=== PATIENT | female | born 1955 | race Caucasian/White ===

== ENCOUNTER 2018-05-25 11:37 | Emergency (ER) | payer MEDICARE, MEDICAID ==
[~2018-05-25] VITALS: Ht 162.6 cm; Wt 82.3 kg
[~2018-05-25 11:37] MED LIST: ALBU8HFA PO; AMIT-106 PO; BUDE10.2 INH; ESTR2TAB6 PO; GABA-532 PO; HYDR-3964 PO; LANS30CA56 PO; LEVO750T46 PO; LISI10TA4 PO; MEDR2.5T7 PO; METF-950 PF; ROSU20TA PO
[2018-05-25 12:15] LABS: BASOPHILS % (AUTO) 0.4 % (0-1); EOSINOPHILS % (AUTO) 0.1 % (0-6); HEMATOCRIT 44.1 % (35.0-45.0); HEMOGLOBIN 14.8 g/dl (12.0-16.0); LYMPHOCYTES # (AUTO) 0.6 X10'3 (1.1-4.8); LYMPHOCYTES % (AUTO) 6.5 % (21-51); MEAN CORPUSCULAR HEMOGLOBIN 29.8 PG (27.0-31.0); MEAN CORPUSCULAR HGB CONC 33.5 % (33.0-36.5); MEAN CORPUSCULAR VOLUME 88.9 FL (78-98); MEAN PLATELET VOLUME 8.6 FL (7.4-10.4); MONOCYTES # (AUTO) 0.6 X10'3 (0-0.9); MONOCYTES % (AUTO) 7.2 % (2-12); NEUTROPHILS # (AUTO) 7.7 X10'3 (1.8-7.7); NEUTROPHILS % (AUTO) 85.8 % (42-75); PLATELET COUNT 187 X10'3 (140-440); RED BLOOD COUNT 4.97 X10'6 (4.20-5.60); RED CELL DISTRIBUTION WIDTH 12.2 % (11.5-14.5); WHITE BLOOD COUNT 8.9 X10'3 (4.5-11.0)
[2018-05-25] MEDS ORDERED: ipratropium/albuterol 3ml nebule NEB ONE ×2 (12:15→13:25)
[2018-05-25] MEDS ORDERED: methylPREDNISolone sod succ 125mg/2ml vial IV ONE (12:15)
[2018-05-25 12:18] LABS: PARTIAL THROMBOPLASTIN TIME 27 SECONDS (22-32); PROTHROMBIN TIME 10.4 SECONDS (9.0-12.0)
[2018-05-25 12:21] LABS: ALANINE AMINOTRANSFERASE 13 U/L (12-78); ALBUMIN 3.2 G/DL (3.4-5.0); ALBUMIN/GLOBULIN RATIO 0.8 (1.1-1.5); ALKALINE PHOSPHATASE 71 IU/L (46-116); ANION GAP 9 (8-16); ASPARTATE AMINO TRANSFERASE 10 U/L (10-37); BILIRUBIN,TOTAL 0.3 MG/DL (0.1-1.0); BLOOD UREA NITROGEN 16 MG/DL (7-18); CALCIUM 8.8 MG/DL (8.5-10.1); CHLORIDE 105 MMOL/L (99-107); GLUCOSE 133 MG/DL (70-104); POTASSIUM 4.6 MMOL/L (3.5-5.1); SODIUM 141 MMOL/L (135-145); TOTAL CARBON DIOXIDE 27.5 MMOL/L (24-32); TOTAL PROTEIN 7.3 G/DL (6.4-8.2); eGFR 56 ML/MIN
[2018-05-25 12:40] VITALS: BP 128/66
[2018-05-25] MEDS ORDERED: AZIT250T PO (13:51)
[2018-05-25] MEDS ORDERED: PRED10TA23 PO (13:51)
== END 2018-05-25 14:14 | disposition home or self-care (01) ==
LOC: ER 11:37
DX: J44.1 Chronic obstructive pulmonary disease with (acute) exacerbation (principal); I10 Essential (primary) hypertension; E11.9 Type 2 diabetes mellitus without complications; Z90.49 Acquired absence of other specified parts of digestive tract; Z88.6 Allergy status to analgesic agent
CPT/HCPCS: 36415; 71045; 80053; 84484; 85025; 85610; 85730; 93005; 94640; 94760; 96374; 99285; J2930

== ENCOUNTER 2018-09-17 12:44 | Outpatient (CLI) | payer MEDICARE, MEDICAID | END 2018-09-17 23:59 | disposition home or self-care (01) | LOC: CARD DIAG 12:44 | PROVIDERS: ATTEND Internal Medicine Critical Care Medicine | DX: I27.0 Primary pulmonary hypertension (principal); R06.02 Shortness of breath; J44.9 Chronic obstructive pulmonary disease, unspecified; E11.9 Type 2 diabetes mellitus without complications; Z88.5 Allergy status to narcotic agent; Z88.6 Allergy status to analgesic agent | CPT/HCPCS: 93306 ==

== ENCOUNTER 2018-10-26 17:45 | Inpatient (IN) | payer MEDICARE, MEDICAID ==
[~2018-10-26] VITALS: Ht 160 cm; Wt 71.4 kg
[~2018-10-26 17:45] MED LIST changes: -ROSU20TA PO; +ROSU20TA2 PO
--- NOTE | 2018-10-26 18:51 | NUR ---
PNEUMONIA PROTOCOL ORDERED, PT TO CXR NOW.
[2018-10-26 19:08] LABS: BASOPHILS % (AUTO) 0.1 % (0-1); EOSINOPHILS % (AUTO) 0 % (0-6); HEMATOCRIT 42.4 % (35.0-45.0); HEMOGLOBIN 14.2 g/dl (12.0-16.0); LYMPHOCYTES # (AUTO) 0.4 X10'3 (1.1-4.8); LYMPHOCYTES % (AUTO) 1.8 % (21-51); MEAN CORPUSCULAR HEMOGLOBIN 29.3 PG (27.0-31.0); MEAN CORPUSCULAR HGB CONC 33.4 g/dL (33.0-36.5); MEAN CORPUSCULAR VOLUME 87.9 FL (78-98); MEAN PLATELET VOLUME 8.8 FL (7.4-10.4); MONOCYTES # (AUTO) 0.9 X10'3 (0-0.9); NEUTROPHILS # (AUTO) 20.7 X10'3 (1.8-7.7); NEUTROPHILS % (AUTO) 94.1 % (42-75); PLATELET COUNT 220 X10'3 (140-440); RED BLOOD COUNT 4.83 X10'6 (4.20-5.60); RED CELL DISTRIBUTION WIDTH 13.5 % (11.5-14.5)
[2018-10-26] MEDS ORDERED: ALBU18HF2 INH (19:15)
[2018-10-26] MEDS ORDERED: OMEP-50 (19:15)
[2018-10-26] MEDS ORDERED: CALC-331 (19:15)
[2018-10-26] MEDS ORDERED: HYDR-4353 PO (19:15)
[2018-10-26] MEDS ORDERED: CRAN200C PO (19:15)
[2018-10-26] MEDS ORDERED: LISI-642 PO (19:15)
[2018-10-26] MEDS ORDERED: PARO20TA6 PO (19:17)
[2018-10-26] MEDS ORDERED: CLOT15CR10 TP (19:17)
[2018-10-26] MEDS ORDERED: TIOT18CA3 (19:17)
[2018-10-26] MEDS ORDERED: albuterol 2.5 MG/3 ML nebule NEB ONE ×2 (19:20→19:40)
--- NOTE | 2018-10-26 19:21 | NUR ---
PIV in place, labs and blood cultures x2 drawn. Sats 88% on 4.5 liters, RR 26. RT paged for svn tratment. Med Rec completed. Pt is polite and cooperative and appropriate. hr 108
[2018-10-26 19:25] LABS: ALANINE AMINOTRANSFERASE 10 U/L (12-78); ALBUMIN 2.5 G/DL (3.4-5.0); ALBUMIN/GLOBULIN RATIO 0.5 (1.1-1.5); ALKALINE PHOSPHATASE 85 IU/L (46-116); ANION GAP 11 (8-16); ASPARTATE AMINO TRANSFERASE 10 U/L (10-37); BILIRUBIN,TOTAL 0.5 MG/DL (0.1-1.0); BLOOD UREA NITROGEN 42 MG/DL (7-18); BUN/CREATININE RATIO 16.4 (6.6-38.0); CALCIUM 8.9 MG/DL (8.5-10.1); CHLORIDE 97 MMOL/L (99-107); CREATININE 2.56 MG/DL (0.40-0.90); GLUCOSE 120 MG/DL (70-104); POTASSIUM 4.6 MMOL/L (3.5-5.1); SODIUM 133 MMOL/L (135-145); TOTAL CARBON DIOXIDE 25.1 MMOL/L (24-32); TOTAL PROTEIN 7.3 G/DL (6.4-8.2); eGFR 19 ML/MIN
[2018-10-26] MEDS ORDERED: normal saline 1000ML IV soln IV ONE (19:40)
[2018-10-26] MEDS ORDERED: ipratropium/albuterol 3ml nebule NEB ONE (19:40)
[2018-10-26] MEDS ORDERED: CefTRIAXone 2gm/D5W 50ml 50 ML IV ONE (19:40)
--- NOTE | 2018-10-26 19:45 | NUR ---
pt just finished svn treatment. pt reports continued pain to her bilateral shouders and head ache and posterior neck ache. to be admitted, awaiting hospitalist.
[2018-10-26] MEDS ORDERED: acetaminophen 325mg tablet PO PRN ×2 (19:50)
[2018-10-26] MEDS ORDERED: HYDROcodone/acetaminophen 5mg/325mg tablet PO PRN (19:50)
[2018-10-26] MEDS ORDERED: enoxaparin 100mg/ml syringe SUBCUT ONE (19:50)
[2018-10-26] MEDS ORDERED: morphine 4 MG/ML inj SYRINge IV PRN (19:50)
[2018-10-26] MEDS ORDERED: magnesium hydroxide 30ml (MOM) UD suspension PO PRN (19:50)
[2018-10-26] MEDS ORDERED: mag hydrox/Alum hydrox/simeth 30ml oral suspension PO PRN (19:50)
[2018-10-26] MEDS ORDERED: ondansetron/PF 4mg/2ml inj IV PRN (19:50)
--- NOTE | 2018-10-26 19:52 | NUR ---
SANJUANA RECEIVED FROM [facility] FOR [facility] 4 FOR PAIN OF 10 OUT OF 10 TO HER NECK AND SHOUDERS AND HEAD
[2018-10-26] MEDS ORDERED: ondansetron/PF 4mg/2ml inj IV ONE (19:55)
[2018-10-26] MEDS: morphine 4 MG/ML inj SYRINge IV PRN (20:07)
[2018-10-26 20:11] LABS: D-DIMER 2.16 MG/L FEU (0-0.50)
[2018-10-26 20:15] LABS: PLATELET ESTIMATE NORMAL; TOTAL CELLS COUNTED 100
[2018-10-26 20:16] LABS: POLYCHROMASIA FEW
[2018-10-26 20:18] LABS: TROPONIN I 0.23 NG/ML (0.0-0.05)
--- NOTE | 2018-10-26 20:48 | NUR ---
ROOM MICHAEL 310, RN NOT AVAILABLE TO RECEIVE REPORT NOW AND WILL CALL BACK SHORTLY.
--- NOTE | 2018-10-26 21:16 | NUR ---
received report from Hallie PUENTES, in ER. pt transferring to room 310
--- NOTE | 2018-10-26 21:45 | NUR ---
pt arrived to unit via gurney from ER, arrived in stable condition, a&0x4, VS taken and stable with mild resp distress. all belongings accompanied pt and at bedside. call light placed in reach of pt and educated on use. will review orders and implement as necessary.
[2018-10-26 22:00] VITALS: BP 99/42
[2018-10-26] MEDS ORDERED: pneumococcal 23-VAL P-sac vacc 25 mcg/0.5ml vial IMVAC ONE (22:20)
[2018-10-26] MEDS ORDERED: furosemide 20 MG/2 ML vial IV ONE (23:00)
--- NOTE | 2018-10-26 23:12 | NUR ---
spoke with Dr Aguilar re pt labs and BP, has only had one BP with MAP >60, with SBP <100, does he still want to give lasix? ok to hold for now unless SBP goes above 100, then ok to give. also informed him lactic went from 2.2 to 2.5, no new orders for IVF at this time. will continue to monitor.
[2018-10-27 02:00] VITALS: BP 112/47
[2018-10-27] MEDS: HYDROcodone/acetaminophen 10/325mg tab PO PRN ×2 (02:32→19:32)
[2018-10-27] MEDS ORDERED: furosemide 20 MG/2 ML vial IV ONE (04:00)
[2018-10-27] MEDS ORDERED: azithromycin/NS 500mg/250ml 250 ML IV ONE (04:10)
[2018-10-27 05:06] LABS: CLARITY,URINE CLEAR (Clear); COLOR,URINE YELLOW (Yellow); GLUCOSE, URINE NEGATIVE (Neg); KETONES,URINE NEGATIVE (Neg); LEUKOCYTE ESTERASE ,URINE NEGATIVE (Neg); NITRITES, URINE NEGATIVE (Neg); OCCULT BLOOD,URINE TRACE-INTACT (Neg); PH,URINE 5.5 (4.8-8.0); PROTEIN,URINE 100 mg/dl (Neg)
[2018-10-27 05:06] LABS: BASOPHILS % (AUTO) 0.2 % (0-1); EOSINOPHILS % (AUTO) 0.1 % (0-6); HEMATOCRIT 36.5 % (35.0-45.0); HEMOGLOBIN 12.2 g/dl (12.0-16.0); LYMPHOCYTES # (AUTO) 0.9 X10'3 (1.1-4.8); MEAN CORPUSCULAR HEMOGLOBIN 29.4 PG (27.0-31.0); MEAN CORPUSCULAR HGB CONC 33.5 g/dL (33.0-36.5); MEAN CORPUSCULAR VOLUME 87.9 FL (78-98); MEAN PLATELET VOLUME 9.1 FL (7.4-10.4); MONOCYTES # (AUTO) 0.7 X10'3 (0-0.9); MONOCYTES % (AUTO) 4.3 % (2-12); NEUTROPHILS # (AUTO) 15.6 X10'3 (1.8-7.7); NEUTROPHILS % (AUTO) 90.4 % (42-75); PLATELET COUNT 176 X10'3 (140-440); RED BLOOD COUNT 4.15 X10'6 (4.20-5.60); RED CELL DISTRIBUTION WIDTH 13.5 % (11.5-14.5); WHITE BLOOD COUNT 17.3 X10'3 (4.5-11.0)
[2018-10-27 05:08] LABS: UA COLLECTION TYPE NON-SPECIFIED
[2018-10-27 05:17] LABS: BACTERIA,URINE 1+ /HPF (Neg); MUCUS STRANDS NONE SEEN /LPF (Neg); SQUAMOUS EPITHELIAL CELL,UR MANY /LPF (FEW)
[2018-10-27 05:35] LABS: ANION GAP 12 (8-16); BLOOD UREA NITROGEN 47 MG/DL (7-18); BUN/CREATININE RATIO 18.3 (6.6-38.0); CHLORIDE 100 MMOL/L (99-107); CREATININE 2.57 MG/DL (0.40-0.90); GLUCOSE 138 MG/DL (70-104); POTASSIUM 3.9 MMOL/L (3.5-5.1); SODIUM 136 MMOL/L (135-145); TOTAL CARBON DIOXIDE 24.4 MMOL/L (24-32); TROPONIN I 0.23 NG/ML (0.0-0.05); eGFR 19 ML/MIN
[2018-10-27] MEDS: morphine 4 MG/ML inj SYRINge IV PRN ×2 (05:39→21:33)
[2018-10-27 06:00] VITALS: BP_SYST 118; BP_SYST 126; BP_DIAS 55; BP_DIAS 63
[2018-10-27 06:52] LABS: PLATELET ESTIMATE NORMAL; TOTAL CELLS COUNTED 100
[2018-10-27] MEDS: budesonide 0.5mg/2ml UD nebule IH SCH ×2 (07:20→19:47)
[2018-10-27] MEDS ORDERED: albuterol 2.5 MG/3 ML nebule NEB SCH (08:00)
[2018-10-27] MEDS: CefTRIAXone/D5W-Rocephin 1gm 50 ML IV SCH (08:48)
[2018-10-27] MEDS: PARoxetine 20mg tablet PO SCH (08:54)
[2018-10-27] MEDS: atorvastatin 10mg tablet PO SCH (08:55)
[2018-10-27] MEDS: gabapentin 300mg capsule PO SCH (08:55)
[2018-10-27] MEDS ORDERED: glucagon, human recombinant 1mg kit SUBCUT PRN (09:25)
[2018-10-27] MEDS ORDERED: potassium Cl 20 mEq SR tablet PO PRN ×2 (09:25)
[2018-10-27] MEDS ORDERED: magnesium Cl slow-release 64mg tablet PO PRN (09:25)
[2018-10-27] MEDS ORDERED: potassium Cl 40MEQ/NS 500ml 500 ML IV PRN ×2 (09:25)
[2018-10-27] MEDS ORDERED: dextrose 50%-water 50ml dispensing syringe IV PRN ×2 (09:25)
[2018-10-27] MEDS: azithromycin 250mg tablet PO SCH (09:25)
[2018-10-27] MEDS ORDERED: dextrose ORAL solution 15 GM/59 ML bottle PO PRN ×2 (09:25)
[2018-10-27] MEDS ORDERED: MESSAGE TO PHARMACY PO ONE (09:25)
[2018-10-27] MEDS ORDERED: magnesium 4gm in 100ml NS 100 ML IV PRN (09:25)
--- NOTE | 2018-10-27 09:30 | NUR ---
Patient in room PCU 3027. I have received report from Art RN and had the opportunity to ask questions and assume patient care.
[2018-10-27] MEDS ORDERED: FLU VACC QUAD 2018(5 YR UP)/PF 60 MCG/0.5 ML SYRINGE IM ONE (10:00)
--- NOTE | 2018-10-27 10:05 | NUR ---
Patient arrived to U 3027B via wheelchair. Patient oriented to room and to call light. Patient VS: T: 97.5, HR: 94, RR:22, O2 97% 7L NC, BP 109/61. Pain /10. Patient in no acute distress. Will continue to monitor.
--- NOTE | 2018-10-27 10:06 | NUR ---
Report called to Saskia in PCU. Pt transferred via WC with all property
--- NOTE | 2018-10-27 10:11 | NUR ---
Student documentation: I have reviewed and agree with all interventions, assessments performed and documented by Shraddha RNS.
[2018-10-27 10:40] LABS: HEMOGLOBIN A1C 5.9 % (4.5-6.2)
[2018-10-27 11:00] VITALS: BP 136/81
[2018-10-27] MEDS: ipratropium/albuterol 3ml nebule NEB SCH ×4 (11:00→23:32)
[2018-10-27 12:41] LABS: ABG BASE EXCESS -4.2 mmol/L (-2.0-3.0); ABG HCO3 21.5 mmol/L (22.0-26.0); ABG OXYGEN SATURATION 90.2 % (95-98); ABG PCO2 (T) 41.9 mmHg (32.0-45.0); ABG PH (T) 7.329 (7.350-7.450); ABG PO2 (T) 59.2 mmHg (83-108); ALLEN'S TEST Positive; FCOHb 0.2 % (0.5-1.5); FMetHb 0.1 % (0.3-1.12); FO2Hb 89.9 % (94-100); TOTAL HEMOGLOBIN 12.8 G/dl (12.0-16.0)
[2018-10-27 12:54] LABS: CLARITY,URINE CLOUDY (Clear); COLOR,URINE YELLOW (Yellow); GLUCOSE, URINE NEGATIVE (Neg); KETONES,URINE NEGATIVE (Neg); LEUKOCYTE ESTERASE ,URINE NEGATIVE (Neg); NITRITES, URINE NEGATIVE (Neg); OCCULT BLOOD,URINE TRACE-INTACT (Neg); PH,URINE 5.5 (4.8-8.0); PROTEIN,URINE 30 mg/dl (Neg)
[2018-10-27 12:55] LABS: UA COLLECTION TYPE STRAIGHT CATH
--- NOTE | 2018-10-27 13:07 | NUR ---
New order from Dr. Ricardo: Incentive spirometer Q1H while awake.
[2018-10-27 13:12] LABS: TOTAL PROTEIN,URINE RANDOM 58.6 MG/DL
[2018-10-27 13:32] LABS: BACTERIA,URINE NONE SEEN /HPF (Neg); RBC,URINE 0-2 /HPF (0-2); SQUAMOUS EPITHELIAL CELL,UR NONE SEEN /LPF (FEW); WBC,URINE 0-4 /HPF (0-4)
[2018-10-27 13:33] LABS: AMORPHOUS URATES 2+
[2018-10-27 13:35] LABS: MUCUS STRANDS FEW /LPF (Neg)
[2018-10-27 15:00] VITALS: BP 117/48
--- NOTE | 2018-10-27 18:21 | NUR ---
Patient in room PCU 3027. I have received report from CHRISTELLE PEUNTES and had the opportunity to ask questions and assume patient care. PATIENT AWAKE IN NO DISTRESS REPORTING HER BREATHING IS MUCH BETTER TODAY
--- NOTE | 2018-10-27 18:24 | NUR ---
Problems reprioritized. Patient report given, questions answered & plan of care reviewed with Alexia PUENTES.
--- NOTE | 2018-10-27 18:28 | NUR ---
[place] documentation: I have reviewed and agree with all interventions, assessments performed and documented by May PUENTES. [place] Medication Administration: For this medication-pass time frame, all medication were reviewed, dispensed, administered and documented per hospital policy by Mya PUENTES.
--- NOTE | 2018-10-27 18:32 | NUR ---
Problems reprioritized. Patient report given, questions answered & plan of care reviewed with Alexia PUENTES.
[2018-10-27 19:00] VITALS: BP 123/48
[2018-10-27] MEDS: insulin glargine (Lantus) pen - multi-dose SQ SCH (21:00)
[2018-10-27] MEDS: clotrimazole topical cream 15gm tube TP SCH (21:23)
--- NOTE | 2018-10-27 21:46 | NUR ---
PAGER ID: [phone] MESSAGE: pcu [phone]; Mei alvarez has some upper abdominal and chest pain 05/26. v/s stable. she came in with pleuritic pain but stat ekg done. morphine given. did you want to do anything else? thanks Addendum: 10/27/18 at 2152 by Nitish Guthrie RN dr vernon called back stating patient has been having this type of chest pain "all along" and to only medicate for pain at this time
[2018-10-27 23:00] VITALS: BP 128/51
--- NOTE | 2018-10-28 00:56 | NUR ---
PAGER ID: [phone] MESSAGE: pcu [phone]; Mei alvarez is having some sob hr 130's. o2sat low 90's on 5-6l. I gave morphine 3 hours ago. can we please get something more. patient is c/o 03/26 pain when coughing. thanks marcelino Addendum: 10/28/18 at 0151 by Nitish Guthrie RN dr vernon never called back; morphine given at prn time frame. patient hr bouncing around from low 100's to 120's but o2sat above 90 at this time back at 5l. patient instructed to cough up phlegm and was given IS/Flutter. patient was found at the start of the event flat in bed. patient now sitting up in bed with hob elevated. no sob or distress reported. still awaiting call back
[2018-10-28] MEDS: morphine 4 MG/ML inj SYRINge IV PRN (01:34)
[2018-10-28] MEDS ORDERED: morphine 2 MG/ML inj. syringe IV PRN (02:10)
[2018-10-28 03:00] VITALS: BP 114/40
--- NOTE | 2018-10-28 03:02 | NUR ---
dr vernon arrived to floor and was updated on patient's status; he stated he wasnt concerned about the hr and stated nurse needed to control pain better. ordered to increase morphine interval to q2h
[2018-10-28] MEDS: ipratropium/albuterol 3ml nebule NEB SCH ×6 (03:36→23:40)
[2018-10-28] MEDS: morphine 2 MG/ML inj. syringe IV PRN (04:17)
[2018-10-28 05:13] LABS: BASOPHILS % (AUTO) 0.1 % (0-1); EOSINOPHILS # (AUTO) 0.1 X10'3 (0-0.9); EOSINOPHILS % (AUTO) 0.5 % (0-6); HEMATOCRIT 32.8 % (35.0-45.0); HEMOGLOBIN 11.2 g/dl (12.0-16.0); LYMPHOCYTES # (AUTO) 1.1 X10'3 (1.1-4.8); MEAN CORPUSCULAR HEMOGLOBIN 29.8 PG (27.0-31.0); MEAN CORPUSCULAR HGB CONC 34.1 g/dL (33.0-36.5); MEAN CORPUSCULAR VOLUME 87.3 FL (78-98); MEAN PLATELET VOLUME 8.9 FL (7.4-10.4); MONOCYTES # (AUTO) 0.6 X10'3 (0-0.9); MONOCYTES % (AUTO) 5.1 % (2-12); NEUTROPHILS # (AUTO) 10.5 X10'3 (1.8-7.7); NEUTROPHILS % (AUTO) 85.3 % (42-75); PLATELET COUNT 177 X10'3 (140-440); RED BLOOD COUNT 3.76 X10'6 (4.20-5.60); RED CELL DISTRIBUTION WIDTH 13.6 % (11.5-14.5); WHITE BLOOD COUNT 12.3 X10'3 (4.5-11.0)
[2018-10-28 05:36] LABS: ALBUMIN 1.9 G/DL (3.4-5.0); ANION GAP 13 (8-16); BLOOD UREA NITROGEN 53 MG/DL (7-18); BUN/CREATININE RATIO 25.6 (6.6-38.0); CALCIUM 8.3 MG/DL (8.5-10.1); CHLORIDE 102 MMOL/L (99-107); CREATININE 2.07 MG/DL (0.40-0.90); GLUCOSE 106 MG/DL (70-104); MAGNESIUM 1.5 MG/DL (1.5-2.4); POTASSIUM 3.6 MMOL/L (3.5-5.1); SODIUM 138 MMOL/L (135-145); TOTAL CARBON DIOXIDE 23.5 MMOL/L (24-32); TROPONIN I 0.14 NG/ML (0.0-0.05); eGFR 24 ML/MIN
--- NOTE | 2018-10-28 05:36 | NUR ---
PAGER ID: [phone] MESSAGE: pcu [phone]; Mei quintanaci her hr is still sitting in the 110-120's after being given morphine. patient is no longer reporting any pain but hr still elevated. please advise thank marcelino
[2018-10-28 06:00] VITALS: BP 130/52
--- NOTE | 2018-10-28 06:07 | NUR ---
Problems reprioritized. Patient report given, questions answered & plan of care reviewed with abiodun jaquez.
--- NOTE | 2018-10-28 06:30 | NUR ---
Patient in room PCU 3027. I have received report from Alexia PUENTES and had the opportunity to ask questions and assume patient care.
[2018-10-28] MEDS: PARoxetine 20mg tablet PO SCH (07:51)
[2018-10-28] MEDS: azithromycin 250mg tablet PO SCH (07:51)
[2018-10-28] MEDS: atorvastatin 10mg tablet PO SCH (07:52)
[2018-10-28] MEDS: CefTRIAXone/D5W-Rocephin 1gm 50 ML IV SCH (07:52)
[2018-10-28] MEDS: gabapentin 300mg capsule PO SCH (07:52)
[2018-10-28] MEDS: clotrimazole topical cream 15gm tube TP SCH ×2 (08:00→20:00)
[2018-10-28] MEDS ORDERED: non-formulary drug (Cranberry Extract (Cranberry) 2 TAB) PO SCH (08:00)
[2018-10-28] MEDS: budesonide 0.5mg/2ml UD nebule IH SCH ×2 (08:20→19:57)
[2018-10-28] MEDS ORDERED: methylPREDNISolone sod succ 125mg/2ml vial IV ONE (10:40)
[2018-10-28 11:00] VITALS: BP 138/56
[2018-10-28 13:06] LABS: ABG BASE EXCESS -0.6 mmol/L (-2.0-3.0); ABG HCO3 25.6 mmol/L (22.0-26.0); ABG OXYGEN SATURATION 91.9 % (95-98); ABG PCO2 (T) 48.5 mmHg (32.0-45.0); ABG PH (T) 7.341 (7.350-7.450); ABG PO2 (T) 63.5 mmHg (83-108); ALLEN'S TEST Positive; FCOHb 0.3 % (0.5-1.5); FLOW 5 L/min; FMetHb 0.1 % (0.3-1.12); FO2Hb 91.5 % (94-100)
[2018-10-28] MEDS: methylPREDNISolone sod succ 125mg/2ml vial IV SCH ×2 (13:26→20:35)
[2018-10-28 15:00] VITALS: BP 142/86
--- NOTE | 2018-10-28 15:00 | NUR ---
Student documentation: I have reviewed and agree with all interventions, assessments performed and documented by Anastasiia HE. Student Medication Administration: For this medication-pass time frame, all medication were reviewed, dispensed, administered and documented per hospital policy by Anastasiai HE.
--- NOTE | 2018-10-28 18:30 | NUR ---
Problems reprioritized. Patient report given, questions answered & plan of care reviewed with Dell PUENTES.
[2018-10-28 19:00] VITALS: BP 139/55
[2018-10-28] MEDS: insulin Lispro (HumaLOG) vial - multi-dose SQ SCH (21:27)
[2018-10-28] MEDS: insulin glargine (Lantus) pen - multi-dose SQ SCH (21:28)
[2018-10-28] MEDS: HYDROcodone/acetaminophen 10/325mg tab PO PRN (22:34)
[2018-10-29] MEDS: methylPREDNISolone sod succ 125mg/2ml vial IV SCH ×4 (02:06→21:01)
[2018-10-29] MEDS: morphine 2 MG/ML inj. syringe IV PRN (02:30)
[2018-10-29 03:00] VITALS: BP 140/62
[2018-10-29] MEDS: ipratropium/albuterol 3ml nebule NEB SCH ×6 (03:31→23:39)
[2018-10-29 06:42] LABS: BASOPHILS % (AUTO) 0.2 % (0-1); EOSINOPHILS % (AUTO) 0 % (0-6); HEMATOCRIT 33.9 % (35.0-45.0); HEMOGLOBIN 11.2 g/dl (12.0-16.0); LYMPHOCYTES # (AUTO) 0.4 X10'3 (1.1-4.8); LYMPHOCYTES % (AUTO) 4.3 % (21-51); MEAN CORPUSCULAR HEMOGLOBIN 29.3 PG (27.0-31.0); MEAN CORPUSCULAR HGB CONC 33.2 g/dL (33.0-36.5); MEAN CORPUSCULAR VOLUME 88.4 FL (78-98); MEAN PLATELET VOLUME 8.8 FL (7.4-10.4); MONOCYTES # (AUTO) 0.2 X10'3 (0-0.9); MONOCYTES % (AUTO) 2.3 % (2-12); NEUTROPHILS # (AUTO) 7.8 X10'3 (1.8-7.7); NEUTROPHILS % (AUTO) 93.2 % (42-75); PLATELET COUNT 181 X10'3 (140-440); RED BLOOD COUNT 3.83 X10'6 (4.20-5.60); RED CELL DISTRIBUTION WIDTH 13.9 % (11.5-14.5); WHITE BLOOD COUNT 8.4 X10'3 (4.5-11.0)
--- NOTE | 2018-10-29 06:47 | NUR ---
Patient in room PCU 3027. I have received report from jigar and had the opportunity to ask questions and assume patient care.
[2018-10-29 06:59] LABS: ALBUMIN 1.9 G/DL (3.4-5.0); ANION GAP 10 (8-16); BLOOD UREA NITROGEN 55 MG/DL (7-18); BUN/CREATININE RATIO 36.2 (6.6-38.0); CALCIUM 9.2 MG/DL (8.5-10.1); CHLORIDE 104 MMOL/L (99-107); CREATININE 1.52 MG/DL (0.40-0.90); GLUCOSE 227 MG/DL (70-104); MAGNESIUM 1.7 MG/DL (1.5-2.4); PHOSPHORUS 2.6 MG/DL (2.3-4.5); POTASSIUM 4.2 MMOL/L (3.5-5.1); SODIUM 139 MMOL/L (135-145); TOTAL CARBON DIOXIDE 24.8 MMOL/L (24-32); eGFR 34 ML/MIN
[2018-10-29 07:00] VITALS: BP 138/53
[2018-10-29 07:12] LABS: PLATELET ESTIMATE NORMAL; TOTAL CELLS COUNTED 100
[2018-10-29 07:13] LABS: ANISOCYTOSIS 1+; POIKILOCYTOSIS FEW
[2018-10-29] MEDS: gabapentin 300mg capsule PO SCH ×2 (07:41→21:01)
[2018-10-29] MEDS: CefTRIAXone/D5W-Rocephin 1gm 50 ML IV SCH (07:41)
[2018-10-29] MEDS: azithromycin 250mg tablet PO SCH (07:41)
[2018-10-29] MEDS: atorvastatin 10mg tablet PO SCH (07:41)
[2018-10-29] MEDS: PARoxetine 20mg tablet PO SCH (07:41)
[2018-10-29] MEDS: budesonide 0.5mg/2ml UD nebule IH SCH ×2 (08:42→20:30)
[2018-10-29 11:00] VITALS: BP 158/64
[2018-10-29] MEDS: clotrimazole topical cream 15gm tube TP SCH ×2 (12:02→21:01)
[2018-10-29] MEDS: HYDROcodone/acetaminophen 10/325mg tab PO PRN ×3 (12:02→21:01)
[2018-10-29] MEDS: insulin Lispro (HumaLOG) vial - multi-dose SQ SCH ×2 (13:56→18:49)
[2018-10-29 15:00] VITALS: BP 145/50
--- NOTE | 2018-10-29 16:07 | NUR ---
Pt offered prune juice or milk of magnesia. she states she normally does not have frequent BMS and states she will be able to have a BM once she gets home
--- NOTE | 2018-10-29 16:14 | NUR ---
PAGER ID: [phone] MESSAGE: Room 3023L Harriett. pt has been stable on 2 l NC, no complaints, pt inquiring DC. Katya [phone]
[2018-10-29 18:00] VITALS: BP 159/60
[2018-10-29] MEDS: insulin glargine (Lantus) pen - multi-dose SQ SCH (21:05)
[2018-10-29 23:00] VITALS: BP 155/62
[2018-10-30] MEDS: methylPREDNISolone sod succ 125mg/2ml vial IV SCH ×2 (00:55→08:39)
[2018-10-30] MEDS: HYDROcodone/acetaminophen 10/325mg tab PO PRN ×3 (00:56→09:37)
[2018-10-30 03:00] VITALS: BP 156/66
[2018-10-30] MEDS: ipratropium/albuterol 3ml nebule NEB SCH ×3 (03:15→11:00)
[2018-10-30 05:00] LABS: BASOPHILS % (AUTO) 0.1 % (0-1); EOSINOPHILS % (AUTO) 0 % (0-6); HEMATOCRIT 36.7 % (35.0-45.0); HEMOGLOBIN 12.3 g/dl (12.0-16.0); LYMPHOCYTES # (AUTO) 0.5 X10'3 (1.1-4.8); LYMPHOCYTES % (AUTO) 5.7 % (21-51); MEAN CORPUSCULAR HEMOGLOBIN 29.2 PG (27.0-31.0); MEAN CORPUSCULAR HGB CONC 33.4 g/dL (33.0-36.5); MEAN CORPUSCULAR VOLUME 87.5 FL (78-98); MEAN PLATELET VOLUME 8.6 FL (7.4-10.4); MONOCYTES # (AUTO) 0.3 X10'3 (0-0.9); MONOCYTES % (AUTO) 4.2 % (2-12); NEUTROPHILS # (AUTO) 7.2 X10'3 (1.8-7.7); PLATELET COUNT 200 X10'3 (140-440); RED CELL DISTRIBUTION WIDTH 13.9 % (11.5-14.5)
[2018-10-30 05:07] LABS: ALBUMIN 2.1 G/DL (3.4-5.0); ANION GAP 11 (8-16); BLOOD UREA NITROGEN 64 MG/DL (7-18); CALCIUM 9.9 MG/DL (8.5-10.1); CHLORIDE 104 MMOL/L (99-107); CREATININE 1.39 MG/DL (0.40-0.90); GLUCOSE 193 MG/DL (70-104); MAGNESIUM 1.6 MG/DL (1.5-2.4); POTASSIUM 4.4 MMOL/L (3.5-5.1); SODIUM 139 MMOL/L (135-145); TOTAL CARBON DIOXIDE 24.5 MMOL/L (24-32); eGFR 38 ML/MIN
[2018-10-30 07:00] VITALS: BP 135/52
--- NOTE | 2018-10-30 07:02 | NUR ---
Patient in room PCU 3027. I have received report from Tennille Chapin and had the opportunity to ask questions and assume patient care.
[2018-10-30] MEDS: budesonide 0.5mg/2ml UD nebule IH SCH (08:19)
[2018-10-30] MEDS: clotrimazole topical cream 15gm tube TP SCH (08:39)
[2018-10-30] MEDS: azithromycin 250mg tablet PO SCH (08:40)
[2018-10-30] MEDS: gabapentin 300mg capsule PO SCH (08:40)
[2018-10-30] MEDS: atorvastatin 10mg tablet PO SCH (08:40)
[2018-10-30] MEDS: PARoxetine 20mg tablet PO SCH (08:40)
[2018-10-30] MEDS: CefTRIAXone/D5W-Rocephin 1gm 50 ML IV SCH (08:43)
[2018-10-30] MEDS: insulin Lispro (HumaLOG) vial - multi-dose SQ SCH ×2 (08:57→12:37)
[2018-10-30 09:47] LABS: ANISOCYTOSIS 1+; PLATELET ESTIMATE NORMAL; POIKILOCYTOSIS FEW; TOTAL CELLS COUNTED 100
[2018-10-30] MEDS ORDERED: CEFD300C3 PO (10:15)
[2018-10-30] MEDS ORDERED: AZI25OT PO (10:15)
[2018-10-30] MEDS ORDERED: PRED10TA23 PO (10:15)
--- NOTE | 2018-10-30 11:25 | NUR ---
page sent to case management and informed them of pt DC today with GAURAV
[2018-10-30] MEDS ORDERED: FLU VACC QUAD 2018(5 YR UP)/PF 60 MCG/0.5 ML SYRINGE IM ONE (12:10)
[2018-10-30] MEDS ORDERED: pneumococcal 23-VAL P-sac vacc 25 mcg/0.5ml vial IMVAC ONE (12:10)
--- NOTE | 2018-10-30 12:57 | NUR ---
pt discharged, IV DCd, pt given norco prescription/ copy in chart, pt refused vaccinations, pt stable, gave opportunity for questions/concerns, pt stated she understood DC instructions
--- NOTE | 2018-10-30 13:08 | NUR ---
pt prescriptions called in
== END 2018-10-30 13:00 | disposition home health service (06) | DRG 871 ==
LOC: ER 17:46 → ED HOLD 19:55 → EDBEDREQ 20:49 → MED 3N 21:45 → PCU 3S 10-27 10:06
PROVIDERS: ADMIT Internal Medicine; ATTEND Family Medicine
PROC: CB121ZZ Planar Nuclear Medicine Imaging of Lungs and Bronchi using Technetium 99m (Tc-99m) (ICD-10-PCS; principal; 2018-10-27)
PROC: 5A09357 Assistance with Respiratory Ventilation, Less than 24 Consecutive Hours, Continuous Positive Airway Pressure (ICD-10-PCS; 2018-10-28)
PROC: 5A09357 Assistance with Respiratory Ventilation, Less than 24 Consecutive Hours, Continuous Positive Airway Pressure (ICD-10-PCS; 2018-10-29)
DX: A41.9 Sepsis, unspecified organism (principal); I21.A1 Myocardial infarction type 2; J96.21 Acute and chronic respiratory failure with hypoxia; J18.1 Lobar pneumonia, unspecified organism; N17.9 Acute kidney failure, unspecified; J44.1 Chronic obstructive pulmonary disease with (acute) exacerbation; I13.0 Hypertensive heart and chronic kidney disease with heart failure and stage 1 through stage 4 chronic kidney disease, or unspecified chronic kidney disease; J44.0 Chronic obstructive pulmonary disease with (acute) lower respiratory infection; E11.22 Type 2 diabetes mellitus with diabetic chronic kidney disease; E78.5 Hyperlipidemia, unspecified; F17.200 Nicotine dependence, unspecified, uncomplicated; I50.9 Heart failure, unspecified; K21.9 Gastro-esophageal reflux disease without esophagitis; N18.9 Chronic kidney disease, unspecified; F12.90 Cannabis use, unspecified, uncomplicated; F32.9 Major depressive disorder, single episode, unspecified; G89.29 Other chronic pain; Z28.21 Immunization not carried out because of patient refusal; Z90.49 Acquired absence of other specified parts of digestive tract; Z90.5 Acquired absence of kidney; Z99.81 Dependence on supplemental oxygen; Z88.6 Allergy status to analgesic agent; Z79.84 Long term (current) use of oral hypoglycemic drugs; Z79.899 Other long term (current) drug therapy; Z85.528 Personal history of other malignant neoplasm of kidney; Z82.49 Family history of ischemic heart disease and other diseases of the circulatory system; Z71.6 Tobacco abuse counseling
CPT/HCPCS: 36415; 36600; 71046; 71250; 76775; 78582; 80048; 80053; 81001; 82570; 82803; 82948; 83036; 83605; 83735; 83880; 84100; 84145; 84156; 84300; 84484; 85018; 85025; 85379; 87040; 87070; 87088; 87207; 93005; 93970; 94640; 94660; 94760; 97116; 97161; 97530; 99285; A9539; A9540; G0378; J0456; J0696; J1650; J1815; J1940; J2270; J2405; J2930; J7626; Q2037

== ENCOUNTER 2018-11-10 04:44 | Inpatient (IN) | payer MEDICARE, MEDICAID | END 2018-11-12 11:40 | disposition home or self-care (01) | LOC: ER 04:44 → ED HOLD 09:10 → PCU 3S 13:30 | DX: I25.119 Atherosclerotic heart disease of native coronary artery with unspecified angina pectoris (principal); J96.10 Chronic respiratory failure, unspecified whether with hypoxia or hypercapnia ==

== ENCOUNTER 2019-08-27 14:59 | Inpatient (IN) | payer MEDICARE, MEDICAID ==
[~2019-08-27] VITALS: Ht 157.5 cm; Wt 77.3 kg
[~2019-08-27 14:59] MED LIST changes: +ALBU18HF2 INH; -ALBU8HFA PO; -AMIT-106 PO; +ASPI-1071 PO; +CALC-331; +CARV6.253 PO; +CLOP75TA35 PO; +CLOT15CR10 TP; +CRAN200C PO; +DILT180C66 PO; -ESTR2TAB6 PO; -HYDR-3964 PO; +HYDR-4353 PO; -LANS30CA56 PO; -LEVO750T46 PO; +LISI-642 PO; -LISI10TA4 PO; -MEDR2.5T7 PO; +NITR0.4T51 SL; +OMEP-50; +PARO20TA6 PO; +TIOT18CA3
[2019-08-27 16:19] LABS: BASOPHILS % (AUTO) 0.4 % (0-1); EOSINOPHILS # (AUTO) 0.1 X10'3 (0-0.9); EOSINOPHILS % (AUTO) 0.8 % (0-6); HEMATOCRIT 44.9 % (35.0-45.0); HEMOGLOBIN 15.1 g/dl (12.0-16.0); LYMPHOCYTES # (AUTO) 0.8 X10'3 (1.1-4.8); LYMPHOCYTES % (AUTO) 10.5 % (21-51); MEAN CORPUSCULAR HEMOGLOBIN 28.9 PG (27.0-31.0); MEAN CORPUSCULAR HGB CONC 33.5 g/dL (33.0-36.5); MEAN CORPUSCULAR VOLUME 86.3 FL (78-98); MEAN PLATELET VOLUME 8.4 FL (7.4-10.4); MONOCYTES # (AUTO) 0.5 X10'3 (0-0.9); MONOCYTES % (AUTO) 6.8 % (2-12); NEUTROPHILS % (AUTO) 81.5 % (42-75); PLATELET COUNT 202 X10'3 (140-440); WHITE BLOOD COUNT 7.3 X10'3 (4.5-11.0)
[2019-08-27 16:35] LABS: ALANINE AMINOTRANSFERASE 13 U/L (12-78); ALBUMIN 3.2 G/DL (3.4-5.0); ALBUMIN/GLOBULIN RATIO 0.7 (1.1-1.5); ALKALINE PHOSPHATASE 84 IU/L (46-116); ANION GAP 9 (8-16); ASPARTATE AMINO TRANSFERASE 17 U/L (10-37); BILIRUBIN,TOTAL 0.3 MG/DL (0.1-1.0); BLOOD UREA NITROGEN 12 MG/DL (7-18); BUN/CREATININE RATIO 12.1 (6.6-38.0); CALCIUM 8.7 MG/DL (8.5-10.1); CHLORIDE 103 MMOL/L (99-107); CREATININE 0.99 MG/DL (0.40-0.90); GLUCOSE 101 MG/DL (70-104); SODIUM 140 MMOL/L (135-145); TOTAL CARBON DIOXIDE 28.2 MMOL/L (24-32); TOTAL PROTEIN 7.8 G/DL (6.4-8.2); eGFR 56 ML/MIN
[2019-08-27] MEDS ORDERED: azithromycin/NS 500mg/250ml 250 ML IV ONE (17:05)
[2019-08-27] MEDS ORDERED: methylPREDNISolone sod succ 125mg/2ml vial IV ONE (17:05)
[2019-08-27] MEDS ORDERED: albuterol 2.5 MG/3 ML nebule CONTNEB PRN ×2 (17:05→19:15)
[2019-08-27] MEDS ORDERED: CefTRIAXone 2gm/D5W 50ml 50 ML IV ONE (17:05)
[2019-08-27 19:35] LABS: ABG BASE EXCESS 1.1 mmol/L (-2.0-3.0); ABG HCO3 27.8 mmol/L (22.0-26.0); ABG OXYGEN SATURATION 69.5 % (95-98); ABG PCO2 (T) 51.8 mmHg (35.0-45.0); ABG PH (T) 7.346 (7.350-7.450); ABG PO2 (T) 35.2 mmHg (83-108); ALLEN'S TEST Positive; FCOHb 5.5 % (0.5-1.5); FMetHb 0.3 % (0.3-1.12); FO2Hb 65.5 % (94-100); PATIENT TEMPERATURE 36.7; RESPIRATORY RATE (OBSERVED) 26 b/min; TOTAL HEMOGLOBIN 14.8 G/dl (12.0-16.0)
[2019-08-27] MEDS ORDERED: iohexol 350MG/ML 100ml bottle IV ONE (19:38)
--- NOTE | 2019-08-27 20:00 | NUR ---
THE MEDICATION WAS CALLED FOR EARLIER, TECH WENT TO GO GET IT AND PHARMACY SAID SOMEONE HAD GOTTEN IT. IT STILL ISN'T HERE. PHARMACY NOTIFIED, THEY SAID THEY JUST HAVE NO IDEA WHAT HAD HAPPENED TO IT, THEY HAD BEEN INFORMED ABOUT IT AND THEY WENT AHEAD AND MIXED UP ANOTHER BAG. SO THAT IS WHY THIS ABX HAS BEEN DELAYED IN ADMINISTRATION.
--- NOTE | 2019-08-27 20:35 | NUR ---
Pt. to CT
[2019-08-27] MEDS ORDERED: DILT-35 PO (21:02)
[2019-08-27] MEDS ORDERED: CLOP75TA35 PO (21:05)
[2019-08-27] MEDS ORDERED: BUDE10.2 INH (21:05)
[2019-08-27] MEDS ORDERED: ASPI-1265 PO (21:05)
[2019-08-27] MEDS ORDERED: CARV6.253 PO (21:05)
--- NOTE | 2019-08-27 21:32 | NUR ---
Per Dr. Garcia, Pt. tolerating SpO2 of 85% at 5 LPM O2.
[2019-08-27] MEDS ORDERED: ondansetron/PF 4mg/2ml inj IV PRN (22:30)
[2019-08-27] MEDS ORDERED: mag hydrox/Alum hydrox/simeth 30ml oral suspension PO PRN (22:30)
[2019-08-27] MEDS ORDERED: magnesium hydroxide 30ml (MOM) UD suspension PO PRN (22:30)
[2019-08-27] MEDS ORDERED: acetaminophen 325mg tablet PO PRN (22:30)
[2019-08-27] MEDS ORDERED: albuterol 2.5 MG/3 ML nebule NEB PRN ×2 (22:35→22:45)
[2019-08-27] MEDS ORDERED: nitroGLYCERIN 0.4mg SUBLingual tab SL PRN (22:35)
[2019-08-27] MEDS ORDERED: LORazepam 2 mg/ml vial IV PRN (22:40)
--- NOTE | 2019-08-27 23:30 | NUR ---
HA'D VERBAL PHONE REPORT FROM OMID CHAVEZ. DHAVAL, AND ASSUMED CARE OF PATIENT AT 2340 WHEN SHE ARRIVED VIA W/C. AMBULATED TO BED AND SWITCHED FROM PORTABLE O2 TANK TO WALL 02. PATIENT NOTICABLY SOB WITH ACTIVITY AND SATS FOUND TO BE 82%. PATIENT SAT ON EDGE OF BED, RESTING WHILE INITIAL VITAL SIGNS WERE TAKEN. 2 RN SKIN CHECK COMPLETED AND PATIENT POSITIONED INTO THE BED WITH HOB UP. ASSMT COMPLETED AND ADMISSION FINISHED. CALL LIGHT EXPLAINED AND PLACED IN REACH.
[2019-08-27 23:40] VITALS: BP 160/67
--- NOTE | 2019-08-28 06:35 | NUR ---
Problems reprioritized. Patient report given, questions answered & plan of care reviewed with CARLITO PUENTES.
[2019-08-28 06:52] VITALS: BP 125/54
[2019-08-28 06:55] LABS: BASOPHILS % (AUTO) 0.2 % (0-1); EOSINOPHILS % (AUTO) 0 % (0-6); HEMATOCRIT 43.3 % (35.0-45.0); HEMOGLOBIN 14.4 g/dl (12.0-16.0); LYMPHOCYTES # (AUTO) 0.4 X10'3 (1.1-4.8); LYMPHOCYTES % (AUTO) 9.3 % (21-51); MEAN CORPUSCULAR HEMOGLOBIN 28.9 PG (27.0-31.0); MEAN CORPUSCULAR HGB CONC 33.2 g/dL (33.0-36.5); MEAN CORPUSCULAR VOLUME 86.9 FL (78-98); MEAN PLATELET VOLUME 8.7 FL (7.4-10.4); MONOCYTES # (AUTO) 0.1 X10'3 (0-0.9); MONOCYTES % (AUTO) 1.8 % (2-12); NEUTROPHILS # (AUTO) 3.8 X10'3 (1.8-7.7); NEUTROPHILS % (AUTO) 88.7 % (42-75); PLATELET COUNT 192 X10'3 (140-440); RED BLOOD COUNT 4.98 X10'6 (4.20-5.60); RED CELL DISTRIBUTION WIDTH 14.4 % (11.5-14.5); WHITE BLOOD COUNT 4.3 X10'3 (4.5-11.0)
[2019-08-28 07:21] LABS: ALANINE AMINOTRANSFERASE 18 U/L (12-78); ALBUMIN 3.1 G/DL (3.4-5.0); ALBUMIN/GLOBULIN RATIO 0.7 (1.1-1.5); ALKALINE PHOSPHATASE 79 IU/L (46-116); ANION GAP 9 (8-16); ASPARTATE AMINO TRANSFERASE 14 U/L (10-37); BILIRUBIN,TOTAL 0.2 MG/DL (0.1-1.0); BLOOD UREA NITROGEN 14 MG/DL (7-18); BUN/CREATININE RATIO 14.4 (6.6-38.0); CHLORIDE 103 MMOL/L (99-107); CREATININE 0.97 MG/DL (0.40-0.90); GLUCOSE 161 MG/DL (70-104); POTASSIUM 4.2 MMOL/L (3.5-5.1); SODIUM 142 MMOL/L (135-145); TOTAL CARBON DIOXIDE 29.6 MMOL/L (24-32); TOTAL PROTEIN 7.8 G/DL (6.4-8.2); eGFR 58 ML/MIN
[2019-08-28] MEDS ORDERED: pantoprazole 40mg Tablet.DR PO SCH (07:30)
[2019-08-28] MEDS ORDERED: carvedilol 6.25mg tablet PO SCH (08:00)
[2019-08-28] MEDS ORDERED: methylPREDNISolone sod succ/PF 40mg inj. IV SCH (08:00)
[2019-08-28] MEDS ORDERED: clopidogrel 75mg tablet PO SCH (08:00)
[2019-08-28] MEDS ORDERED: aspirin 81mg tab.chew PO SCH (08:00)
[2019-08-28] MEDS ORDERED: atorvastatin 10mg tablet PO SCH (08:00)
[2019-08-28] MEDS ORDERED: azithromycin 250mg tablet PO SCH (08:00)
[2019-08-28] MEDS ORDERED: lisinopril 5mg tablet PO SCH (08:00)
[2019-08-28] MEDS ORDERED: CefTRIAXone/D5W-Rocephin 1gm 50 ML IV SCH (08:00)
[2019-08-28] MEDS ORDERED: PARoxetine 20mg tablet PO SCH (08:00)
[2019-08-28] MEDS ORDERED: gabapentin 300mg capsule PO SCH ×2 (08:00→20:00)
[2019-08-28] MEDS ORDERED: diltiazem CD 120mg capsule (once-daily) PO SCH (08:00)
[2019-08-28] MEDS ORDERED: heparin, porcine 5000 units/ml vial SQ SCH (08:00)
[2019-08-28] MEDS ORDERED: non-formulary drug (Cranberry Extract (Cranberry) 2 TAB) PO SCH (08:00)
[2019-08-28] MEDS ORDERED: clotrimazole topical cream 15gm tube TP SCH (08:00)
[2019-08-28] MEDS ORDERED: budesonide 0.5mg/2ml UD nebule IH SCH (09:00)
[2019-08-28] MEDS ORDERED: FLU VACC QS2019-20 36MOS UP/PF 60 MCG/0.5 ML SYRINGE IMVAC ONE (10:00)
--- NOTE | 2019-08-28 10:24 | NUR ---
PAGER ID: [phone] MESSAGE: PT IN ROOM [id number] GALUCCI- PT BLOOD PRESSURE 189/95 HR 86. PLEASE ADVISE. THANK YOU CARLITO PUENTES [phone]
[2019-08-28 10:42] VITALS: BP 189/95
[2019-08-28] MEDS: HYDROcodone/acetaminophen 10/325mg tab PO PRN ×2 (12:21→17:11)
[2019-08-28 12:49] VITALS: BP 146/84
--- NOTE | 2019-08-28 13:48 | NUR ---
DM Consult: Pt last A1C 5.8 10/2018; MALA d/w RN for new updated A1C per MD approval. Will monitor for results. Addendum: 08/28/19 at [address] Amended: Links added.
--- NOTE | 2019-08-28 21:20 | NUR ---
1930 was informed by early shift RN, Ngozi, patient has signed paperwork and is leaving AMA. Daughter arrived and patient taken to private vehicle with daughter. Attempted to talk to patient about the benefits of remaining in the hospital at least overnight, but was adamant about leaving. Pts left with all belongings
== END 2019-08-28 19:10 | disposition left against medical advice (07) | DRG 193 ==
LOC: ER 15:00 → ED HOLD 22:28 → ORTHO 4S 23:52
PROVIDERS: ADMIT Internal Medicine; ATTEND Internal Medicine
PROC: B32T1ZZ Computerized Tomography (CT Scan) of Left Pulmonary Artery using Low Osmolar Contrast (ICD-10-PCS; principal; 2019-08-27)
PROC: B3201ZZ Computerized Tomography (CT Scan) of Thoracic Aorta using Low Osmolar Contrast (ICD-10-PCS; 2019-08-27)
PROC: B32S1ZZ Computerized Tomography (CT Scan) of Right Pulmonary Artery using Low Osmolar Contrast (ICD-10-PCS; 2019-08-27)
DX: J18.9 Pneumonia, unspecified organism (principal); J96.01 Acute respiratory failure with hypoxia; J96.02 Acute respiratory failure with hypercapnia; J44.0 Chronic obstructive pulmonary disease with (acute) lower respiratory infection; J44.1 Chronic obstructive pulmonary disease with (acute) exacerbation; Z53.29 Procedure and treatment not carried out because of patient's decision for other reasons; F32.9 Major depressive disorder, single episode, unspecified; E78.5 Hyperlipidemia, unspecified; E11.9 Type 2 diabetes mellitus without complications; F17.210 Nicotine dependence, cigarettes, uncomplicated; I10 Essential (primary) hypertension; F12.90 Cannabis use, unspecified, uncomplicated; I25.10 Atherosclerotic heart disease of native coronary artery without angina pectoris; Z90.49 Acquired absence of other specified parts of digestive tract; Z90.5 Acquired absence of kidney; Z99.81 Dependence on supplemental oxygen; Z88.5 Allergy status to narcotic agent; Z79.899 Other long term (current) drug therapy; Z85.528 Personal history of other malignant neoplasm of kidney
CPT/HCPCS: 36415; 36600; 71045; 71275; 80053; 82803; 82948; 83605; 84484; 85018; 85025; 87040; 87081; 87502; 87503; 93005; 94640; 94760; 96365; 96375; 99291; G0378; J0456; J0696; J1644; J2920; J2930; J7626; Q2037; Q9967

== ENCOUNTER 2024-12-02 14:09 | Emergency (ER) | payer MEDICARE, MEDICAID ==
[~2024-12-02] VITALS: Ht 157.5 cm; Wt 89.0 kg
[~2024-12-02 14:09] MED LIST changes: -ASPI-1071 PO; +ASPI-1265 PO; +CLOP75TA34 PO; -CLOP75TA35 PO; -CRAN200C PO; -DILT180C66 PO; -METF-950 PF; -OMEP-50; -ROSU20TA2 PO; -TIOT18CA3
[2024-12-02 16:10] VITALS: BP 175/95; RESP 19; O2SAT 98
[2024-12-05] MEDS ORDERED: HYDR25TA90 PO (12:22)
[2024-12-05] MEDS ORDERED: APIX5TAB3 PO (12:22)
[2024-12-05] MEDS ORDERED: LANS30CA56 PO (12:22)
[2024-12-05] MEDS ORDERED: METO-384 PO (12:22)
[2024-12-05] MEDS ORDERED: AMLO-140 PO (12:22)
[2024-12-05] MEDS ORDERED: SEVE800T8 PO (12:22)
[2024-12-05] MEDS ORDERED: ONDA-243 PO (12:22)
[2024-12-05] MEDS ORDERED: HYDR-3965 PO (12:22)
[2024-12-05] MEDS ORDERED: ATOR-429 PO (12:22)
[2024-12-05] MEDS ORDERED: PPD TD (12:22)
[2024-12-05] MEDS ORDERED: AMI200T PO (12:22)
[2024-12-10] MEDS ORDERED: LISI10TA27 PO (22:02)
[2024-12-10] MEDS ORDERED: GABA300T28 (22:02)
[2024-12-10] MEDS ORDERED: FURO-150 PO (22:04)
[2024-12-10] MEDS ORDERED: HYDR-3972 PO (22:04)
[2024-12-10] MEDS ORDERED: CLOT15CR73 TOP (22:05)
== END 2024-12-02 16:40 ==
LOC: ER 14:10
DX: I10 Essential (primary) hypertension (principal); E11.9 Type 2 diabetes mellitus without complications; I25.10 Atherosclerotic heart disease of native coronary artery without angina pectoris; J44.9 Chronic obstructive pulmonary disease, unspecified; F12.90 Cannabis use, unspecified, uncomplicated; Z86.73 Personal history of transient ischemic attack (TIA), and cerebral infarction without residual deficits; Z88.5 Allergy status to narcotic agent; Z90.49 Acquired absence of other specified parts of digestive tract; Z79.899 Other long term (current) drug therapy
CPT/HCPCS: 99284